=== PATIENT | female | born 1990 | race Caucasian/White ===

== ENCOUNTER 2024-11-26 11:08 | Emergency (ER) | payer OTHER ==
[~2024-11-26] VITALS: Ht 170.2 cm; Wt 70.3 kg
[2024-11-26] MEDS ORDERED: LIDOCAINE 1% INJ 50 ML MDV IJ ONE (13:11)
[2024-11-26] MEDS: LIDOCAINE 1% INJ 50 ML MDV IJ ONE (13:16)
[2024-11-26] MEDS ORDERED: LEVO750T46 PO (14:25)
[2024-11-26] MEDS ORDERED: IBUP-1490 PO (14:25)
[2024-11-26 14:41] VITALS: BP 110/59; TEMP 98; O2SAT 95
== END 2024-11-26 14:42 | disposition home or self-care (01) ==
LOC: ER 11:24
DX: T16.1XXA Foreign body in right ear, initial encounter (principal); F17.200 Nicotine dependence, unspecified, uncomplicated; W44.E4XA Non-magnetic metal jewelry entering into or through a natural orifice, initial encounter; Y93.89 Activity, other specified; Y92.89 Other specified places as the place of occurrence of the external cause; Y99.8 Other external cause status
CPT/HCPCS: 99285; 10120; J3490